=== PATIENT | female | born 1970 | race Two or more races ===

== ENCOUNTER 2023-10-19 10:40 | Emergency (ER) | payer OTHER ==
[2023-10-19 10:50] VITALS: PULSE 86; TEMP 97.7
[2023-10-19] MEDS ORDERED: FAMOTIDINE 20 MG/50 ML IVPB 20 MG/50 ML MG IVPB ONE (10:54)
[2023-10-19] MEDS ORDERED: DEXAMETHASONE SOD PHOSPHATE 10 MG/1 ML VIAL ONE (10:54)
[2023-10-19] MEDS: FAMOTIDINE 20 MG/50 ML IVPB 20 MG/50 ML MG IVPB ONE (11:04)
[2023-10-19] MEDS: DEXAMETHASONE SOD PHOSPHATE 10 MG/1 ML VIAL IVPUSH ONE (11:04)
[2023-10-19 11:19] VITALS: BP 111/75; RESP 18
== END 2023-10-19 11:36 | disposition home or self-care (01) ==
LOC: FER 10:40
PROC: 3E033GC Introduction of Other Therapeutic Substance into Peripheral Vein, Percutaneous Approach (ICD-10-PCS; principal; 2023-10-19)
PROC: 3E033GC Introduction of Other Therapeutic Substance into Peripheral Vein, Percutaneous Approach (ICD-10-PCS; 2023-10-19)
PROC: 3E033GC Introduction of Other Therapeutic Substance into Peripheral Vein, Percutaneous Approach (ICD-10-PCS; 2023-10-19)
DX: L50.0 Allergic urticaria (principal); R11.2 Nausea with vomiting, unspecified
CPT/HCPCS: 99284-25; J1100

== ENCOUNTER 2023-12-25 08:28 | Day surgery (SDC) | payer OTHER ==
[2023-12-25 08:58] LABS: HEMATOCRIT 41.6 % (32.4-45.2); HEMOGLOBIN 14.3 GM/dL (10.7-15.3); MCH 30.8 pg (25.7-33.7); MCHC 34.5 g/dl (32.0-36.0); MEAN CELL VOLUME 89.3 fl (80-96); MEAN PLT VOLUME 10.2 fl (7.5-11.1); PLATELET COUNT 210 10^3/uL (134-434); RBC 4.66 M/mm3 (3.60-5.2); RDW 12.6 % (11.6-15.6)
[2023-12-25 09:32] LABS: ANISOCYTOSIS 0; HELMET CELLS 0; HOWELL-JOLLY BODIES 0; MACROCYTOSIS 0; OVALOCYTE 0; ROULEAU 0; SICKELED CELLS 0; TARGET CELLS 0; TEAR DROP CELLS 0; TOXIC GRANULATION 0
[2023-12-25] MEDS: FOSAPREPITANT DIMEGLUMINE 150 MG in SODIUM CHLORIDE 145 ML IVPB ONE (09:55)
[2023-12-25 10:05] LABS: POTASSIUM 3.5 mmol/L (3.5-5.1)
[2023-12-25 10:07] LABS: ALBUMIN 4.1 g/dl (3.4-5.0); BLOOD UREA NITROGEN 14.8 mg/dL (7-18); CALCIUM 9.9 mg/dL (8.5-10.1); MAGNESIUM 2.1 mg/dL (1.8-2.4)
[2023-12-25 10:10] LABS: CREATININE 0.8 mg/dL (0.55-1.3)
[2023-12-25 10:12] LABS: BILIRUBIN,TOTAL 0.5 mg/dL (0.2-1); TOT PROT 8.6 g/dl (6.4-8.2)
[2023-12-25] MEDS: DEXAMETHASONE SODIUM PHOSPHATE 10 MG in SODIUM CHLORIDE 50 ML IVPB ONE (10:30)
[2023-12-25] MEDS: PALONOSETRON HCL 0.25 MG/5 ML VIAL IVPUSH ONE (11:14)
[2023-12-25] MEDS: SODIUM CHLORIDE IVPB ONE ×2 (11:17→14:06)
[2023-12-25] MEDS: TRASTUZUMAB QYYP IVPB ONE (11:17)
[2023-12-25] MEDS: DOCETAXEL 132 MG in SODIUM CHLORIDE 250 ML IV ONE (12:59)
[2023-12-25] MEDS: CARBOPLATIN IVPB ONE (14:06)
[2023-12-25 14:19] VITALS: RESP 20; TEMP 98
[2023-12-25] MEDS: PORTA CATH FLUSH 10 ML IVPUSH PRN (14:56)
[2023-12-25 15:16] VITALS: BP 124/81; PULSE 101
== END 2023-12-25 15:15 | disposition home or self-care (01) ==
LOC: JONCCHEMO 08:28 → J7W 08:29 → JONCCHEMO 15:15
PROVIDERS: ATTEND Internal Medicine Hematology & Oncology
DX: Z51.11 Encounter for antineoplastic chemotherapy (principal); C50.912 Malignant neoplasm of unspecified site of left female breast; Z17.0 Estrogen receptor positive status [ER+]
CPT/HCPCS: 36415; 80053; 83735; 85025; 96413; 96415; 96417; J1453; Q5116

== ENCOUNTER 2023-12-26 14:05 | Day surgery (SDC) | payer OTHER ==
[2023-12-26] MEDS: DEXAMETHASONE SODIUM PHOSPHATE 6 MG in SODIUM CHLORIDE 50 ML IVPB ONE (14:53)
[2023-12-26] MEDS: DEXTROSE 5%-NORMAL SALINE 500 ML IV ONE (14:53)
[2023-12-26 16:11] VITALS: RESP 18; TEMP 98.2
[2023-12-26] MEDS: PEGFILGRASTIM-CBQV (UDENYCA) 6 MG/0.6 ML SYRINGE SQ ONE (17:02)
[2023-12-26] MEDS: PORTA CATH FLUSH 10 ML IVPUSH PRN (17:05)
[2023-12-26 17:32] VITALS: BP 127/69; PULSE 75
== END 2023-12-26 17:20 | disposition home or self-care (01) ==
LOC: J7W 14:05 → JONCCHEMO 14:05
PROVIDERS: ATTEND Internal Medicine Hematology & Oncology
PROC: 3E0437Z Introduction of Electrolytic and Water Balance Substance into Central Vein, Percutaneous Approach (ICD-10-PCS; principal; 2023-12-26)
PROC: 3E043GC Introduction of Other Therapeutic Substance into Central Vein, Percutaneous Approach (ICD-10-PCS; 2023-12-26)
DX: C50.412 Malignant neoplasm of upper-outer quadrant of left female breast (principal); Z17.0 Estrogen receptor positive status [ER+]
CPT/HCPCS: 96361; 96374; Q5111

== ENCOUNTER 2024-01-01 10:26 | Day surgery (SDC) | payer OTHER ==
[2024-01-01] MEDS: D5-NS + 20 MEQ KCL - 20 MEQ/1,000 ML INFUS.BAG IV ONE (11:48)
[2024-01-01 11:54] LABS: EPI CELLS >36 /uL (0-25.1); HYALINE CASTS 2 /uL (0-3.1); PH,URINE 5.5 (5.0-8.0); URINE APPEARANCE CLOUDY; URINE BACTERIA 1951 /uL (0-1359); URINE BILIRUBIN NEGATIVE (NEGATIVE); URINE COLOR YELLOW; URINE GLUCOSE (UA) NEGATIVE (NEGATIVE); URINE KETONE TRACE (NEGATIVE); URINE LEUK ESTERASE NEGATIVE (NEGATIVE); URINE NITRITE NEGATIVE (NEGATIVE); URINE PROTEIN TRACE (NEGATIVE); URINE RBC 14 /uL (0-23.9); URINE UROBILINOGEN 0.2 mg/dL (0.2-1.0); URINE WBC 54 /uL (0-25.8)
[2024-01-01] MEDS: LOPERAMIDE HCL 2 MG CAPSULE PO ONE (12:12)
[2024-01-01] MEDS: ACETAMINOPHEN 325 MG TABLET (FP) PO ONE (12:12)
[2024-01-01 12:13] LABS: HEMATOCRIT 41.9 % (32.4-45.2); HEMOGLOBIN 13.6 GM/dL (10.7-15.3); MCH 29.8 pg (25.7-33.7); MCHC 32.3 g/dl (32.0-36.0); MEAN CELL VOLUME 92.2 fl (80-96); MEAN PLT VOLUME 10.3 fl (7.5-11.1); PLATELET COUNT 126 10^3/uL (134-434); RBC 4.55 M/mm3 (3.60-5.2); RDW 12.6 % (11.6-15.6); WHITE BLOOD COUNT 25.9 K/mm3 (4.0-10.0)
[2024-01-01] MEDS: FAMOTIDINE 20 MG/50 ML IVPB 20 MG/50 ML MG IVPB ONE (12:13)
[2024-01-01] MEDS: ONDANSETRON INJECTION 8 MG in SODIUM CHLORIDE 50 ML IVPB ONE (12:38)
[2024-01-01 12:39] LABS: ANISOCYTOSIS 0; HELMET CELLS 0; HOWELL-JOLLY BODIES 0; MACROCYTOSIS 0; OVALOCYTE 0; ROULEAU 0; SICKELED CELLS 0; TARGET CELLS 0; TEAR DROP CELLS 0; TOXIC GRANULATION 0
[2024-01-01 12:53] LABS: CHLORIDE 104 mmol/L (98-107); POTASSIUM 3.6 mmol/L (3.5-5.1); SODIUM 138 mmol/L (136-145)
[2024-01-01 12:55] LABS: ALBUMIN 3.8 g/dl (3.4-5.0); ANION GAP 7 mmol/L (4-13); BLOOD UREA NITROGEN 6.7 mg/dL (7-18); CALCIUM 9.4 mg/dL (8.5-10.1); CO2 28 mmol/L (21-32); GLUCOSE,RANDOM 87 mg/dL (74-106)
[2024-01-01 12:56] LABS: MAGNESIUM 2.3 mg/dL (1.8-2.4)
[2024-01-01 12:58] LABS: SGPT/ALT 47 U/L (13-61)
[2024-01-01 12:59] LABS: CREATININE 0.7 mg/dL (0.55-1.3); SGOT/AST 40 U/L (15-37)
[2024-01-01 13:00] LABS: BILIRUBIN,TOTAL 0.2 mg/dL (0.2-1); TOT PROT 7.6 g/dl (6.4-8.2)
[2024-01-01 13:01] LABS: ALK PHOS 123 U/L (45-117)
[2024-01-01] MEDS: PORTA CATH FLUSH 10 ML IVPUSH PRN (15:30)
[2024-01-01 16:20] VITALS: BP 102/64; PULSE 104; RESP 16; TEMP 97.8
== END 2024-01-01 15:45 | disposition home or self-care (01) ==
LOC: JONCCHEMO 10:26 → J7W 10:27 → JONCCHEMO 15:45
PROVIDERS: ATTEND Internal Medicine Hematology & Oncology
PROC: 3E04329 Introduction of Other Anti-infective into Central Vein, Percutaneous Approach (ICD-10-PCS; principal; 2024-01-01)
PROC: 3E0437Z Introduction of Electrolytic and Water Balance Substance into Central Vein, Percutaneous Approach (ICD-10-PCS; 2024-01-01)
PROC: 3E043GC Introduction of Other Therapeutic Substance into Central Vein, Percutaneous Approach (ICD-10-PCS; 2024-01-01)
DX: C50.412 Malignant neoplasm of upper-outer quadrant of left female breast (principal); Z17.0 Estrogen receptor positive status [ER+]; Z76.89 Persons encountering health services in other specified circumstances
CPT/HCPCS: 36415; 71046-TC-FY; 74018-TC-FY; 80053; 81003; 83735; 85025; 87040; 87086; 96365; 96366; J2405

== ENCOUNTER 2024-01-02 07:41 | Day surgery (SDC) | payer OTHER ==
[2024-01-02] MEDS: D5-NS + 20 MEQ KCL - 20 MEQ/1,000 ML INFUS.BAG IV ONE (08:15)
[2024-01-02] MEDS: ACETAMINOPHEN 325 MG TABLET (FP) PO ONE (08:26)
[2024-01-02] MEDS: FAMOTIDINE 20 MG/50 ML IVPB 20 MG/50 ML MG IVPB ONE (08:26)
[2024-01-02] MEDS: LOPERAMIDE HCL 2 MG CAPSULE PO ONE (10:59)
[2024-01-02] MEDS: ONDANSETRON INJECTION 8 MG in SODIUM CHLORIDE 50 ML IVPB ONE (10:59)
[2024-01-02 16:43] VITALS: BP 114/67; PULSE 83; RESP 20; TEMP 98.4
[2024-01-02] MEDS ORDERED: PORTA CATH FLUSH 10 ML IVPUSH PRN (16:43)
== END 2024-01-02 12:00 | disposition home or self-care (01) ==
LOC: J7W 07:41 → JONCCHEMO 07:41
PROVIDERS: ATTEND Internal Medicine Hematology & Oncology
PROC: 3E043GC Introduction of Other Therapeutic Substance into Central Vein, Percutaneous Approach (ICD-10-PCS; principal; 2024-01-02)
PROC: 3E0437Z Introduction of Electrolytic and Water Balance Substance into Central Vein, Percutaneous Approach (ICD-10-PCS; 2024-01-02)
DX: Z76.89 Persons encountering health services in other specified circumstances (principal); C50.412 Malignant neoplasm of upper-outer quadrant of left female breast; Z17.0 Estrogen receptor positive status [ER+]
CPT/HCPCS: 96365; 96367

== ENCOUNTER 2024-01-16 08:24 | Day surgery (SDC) | payer OTHER ==
[2024-01-16 09:27] LABS: BASO % 0.1 % (0-2.0); EOS % 0.3 % (0-4.5); HEMATOCRIT 38.1 % (32.4-45.2); HEMOGLOBIN 12.7 GM/dL (10.7-15.3); LYMPH % 16.5 % (8-40); MCH 30.5 pg (25.7-33.7); MCHC 33.3 g/dl (32.0-36.0); MEAN CELL VOLUME 91.7 fl (80-96); MEAN PLT VOLUME 9.8 fl (7.5-11.1); MONO % 8.3 % (3.8-10.2); NEUT % 74.8 % (42.8-82.8); PLATELET COUNT 297 10^3/uL (134-434); RBC 4.16 M/mm3 (3.60-5.2); RDW 13.7 % (11.6-15.6); WHITE BLOOD COUNT 13.6 K/mm3 (4.0-10.0)
[2024-01-16 10:02] LABS: CALCIUM 9.7 mg/dL (8.5-10.1)
[2024-01-16 10:03] LABS: ALBUMIN 4.1 g/dl (3.4-5.0); ANION GAP 7 mmol/L (4-13); BLOOD UREA NITROGEN 14.6 mg/dL (7-18); CHLORIDE 105 mmol/L (98-107); CO2 26 mmol/L (21-32); GLUCOSE,RANDOM 81 mg/dL (74-106); MAGNESIUM 2.4 mg/dL (1.8-2.4); POTASSIUM 3.6 mmol/L (3.5-5.1); SODIUM 139 mmol/L (136-145)
[2024-01-16 10:06] LABS: CREATININE 0.7 mg/dL (0.55-1.3); SGOT/AST 21 U/L (15-37)
[2024-01-16 10:07] LABS: BILIRUBIN,TOTAL 0.4 mg/dL (0.2-1); TOT PROT 8.2 g/dl (6.4-8.2)
[2024-01-16 10:09] LABS: ALK PHOS 100 U/L (45-117)
[2024-01-16 10:18] LABS: SGPT/ALT 33 U/L (13-61)
[2024-01-16] MEDS: FOSAPREPITANT DIMEGLUMINE 150 MG in SODIUM CHLORIDE 145 ML IVPB ONE (10:18)
[2024-01-16] MEDS: PALONOSETRON HCL 0.25 MG/5 ML VIAL IVPUSH ONE (11:44)
[2024-01-16] MEDS: FAMOTIDINE 20 MG/50 ML IVPB 20 MG/50 ML MG IVPB ONE (11:49)
[2024-01-16] MEDS: DEXAMETHASONE SODIUM PHOSPHATE 10 MG in SODIUM CHLORIDE 50 ML IVPB ONE (13:15)
[2024-01-16] MEDS: SODIUM CHLORIDE IVPB ONE ×2 (13:29→19:48)
[2024-01-16] MEDS: TRASTUZUMAB QYYP IVPB ONE (13:29)
[2024-01-16] MEDS: DOCETAXEL 132 MG in SODIUM CHLORIDE 250 ML IV ONE (14:09)
[2024-01-16] MEDS: methylPREDNISolone NA SUCC 125 MG/2 ML VIAL IVPUSH ONE (14:25)
[2024-01-16] MEDS: LORazepam 2 MG/ML SDV VIAL IVPB ONE (16:35)
[2024-01-16] MEDS: MAG HYDROX/AL HYDROX/SIMETH 30 ML UNIT-DOSE CUP PO ONE (16:37)
[2024-01-16] MEDS: DEXAMETHASONE SOD PHOSPHATE 10 MG/1 ML VIAL IVPUSH SCH (16:46)
[2024-01-16] MEDS: CARBOPLATIN IVPB ONE (19:48)
[2024-01-16] MEDS: PORTA CATH FLUSH 10 ML IVPUSH PRN (20:30)
[2024-01-16 20:40] VITALS: BP 128/80; PULSE 77; RESP 16; TEMP 97.9
== END 2024-01-16 21:00 | disposition home or self-care (01) ==
LOC: JONCCHEMO 08:24 → J7W 10:01 → JONCCHEMO 21:00
PROVIDERS: ATTEND Internal Medicine Hematology & Oncology
DX: Z51.11 Encounter for antineoplastic chemotherapy (principal); C50.412 Malignant neoplasm of upper-outer quadrant of left female breast; Z17.0 Estrogen receptor positive status [ER+]
CPT/HCPCS: 36415; 80053; 83735; 84703; 85025; 96367; 96368; 96375; 96413; 96415; 96417; J1100; J1453; Q5116

== ENCOUNTER 2024-01-17 11:45 | Day surgery (SDC) | payer OTHER ==
[2024-01-17] MEDS: DEXTROSE 5%-NORMAL SALINE 1,000 ML IV ONE (12:03)
[2024-01-17] MEDS: DEXAMETHASONE SODIUM PHOSPHATE 6 MG in SODIUM CHLORIDE 50 ML IVPB ONE (12:04)
[2024-01-17] MEDS: PROCHLORPERAZINE INJECTION 10 MG in SODIUM CHLORIDE 50 ML IVPB ONE (13:15)
[2024-01-17] MEDS: FAMOTIDINE 20 MG/50 ML IVPB 20 MG/50 ML MG IVPB ONE (14:20)
[2024-01-17] MEDS: PEGFILGRASTIM-CBQV (UDENYCA) 6 MG/0.6 ML SYRINGE SQ ONE (15:06)
[2024-01-17 15:48] VITALS: BP 123/77; PULSE 91; RESP 20; TEMP 98.1
[2024-01-17] MEDS ORDERED: PORTA CATH FLUSH 10 ML IVPUSH PRN (15:48)
== END 2024-01-17 15:40 | disposition home or self-care (01) ==
LOC: JONCCHEMO 11:45 → J7W 11:45 → JONCCHEMO 15:40
PROVIDERS: ATTEND Internal Medicine Hematology & Oncology
PROC: 3E043GC Introduction of Other Therapeutic Substance into Central Vein, Percutaneous Approach (ICD-10-PCS; principal; 2024-01-17)
PROC: 3E013GC Introduction of Other Therapeutic Substance into Subcutaneous Tissue, Percutaneous Approach (ICD-10-PCS; 2024-01-17)
DX: C50.912 Malignant neoplasm of unspecified site of left female breast (principal); Z76.89 Persons encountering health services in other specified circumstances
CPT/HCPCS: 96365; 96366; 96372; Q5111

== ENCOUNTER 2024-01-18 08:35 | Day surgery (SDC) | payer OTHER ==
[2024-01-18] MEDS: DEXTROSE 5%-NORMAL SALINE 1,000 ML IV ONE (08:20)
[2024-01-18] MEDS: DEXAMETHASONE SODIUM PHOSPHATE 4 MG, ONDANSETRON INJECTION 8 MG in SODIUM CHLORIDE 100 ML IVPB ONE (09:20)
[2024-01-18 10:11] VITALS: TEMP 98.4
[2024-01-18 10:55] LABS: PH,URINE 6.5 (5.0-8.0); URINE APPEARANCE CLEAR; URINE BILIRUBIN NEGATIVE (NEGATIVE); URINE COLOR YELLOW; URINE GLUCOSE (UA) NEGATIVE (NEGATIVE); URINE KETONE NEGATIVE (NEGATIVE); URINE LEUK ESTERASE NEGATIVE (NEGATIVE); URINE NITRITE NEGATIVE (NEGATIVE); URINE PROTEIN NEGATIVE (NEGATIVE); URINE UROBILINOGEN 0.2 mg/dL (0.2-1.0)
[2024-01-18] MEDS: FAMOTIDINE 20 MG/50 ML IVPB 20 MG/50 ML MG IVPB ONE (10:56)
[2024-01-18] MEDS: PORTA CATH FLUSH 10 ML IVPUSH PRN (12:30)
[2024-01-18 14:12] VITALS: BP 118/71; PULSE 83; RESP 16
== END 2024-01-18 13:00 | disposition home or self-care (01) ==
LOC: JONCCHEMO 08:35 → J7W 08:35 → JONCCHEMO 13:00
PROVIDERS: ATTEND Internal Medicine Hematology & Oncology
PROC: 3E043GC Introduction of Other Therapeutic Substance into Central Vein, Percutaneous Approach (ICD-10-PCS; principal; 2024-01-18)
DX: C50.412 Malignant neoplasm of upper-outer quadrant of left female breast (principal); Z17.0 Estrogen receptor positive status [ER+]
CPT/HCPCS: 81003; 87086; 96365; J2405

== ENCOUNTER 2024-01-21 10:57 | Day surgery (SDC) | payer OTHER ==
[2024-01-21 12:18] LABS: HEMOGLOBIN 14.3 GM/dL (10.7-15.3); MCH 31.3 pg (25.7-33.7); MCHC 34.1 g/dl (32.0-36.0); MEAN CELL VOLUME 91.7 fl (80-96); MEAN PLT VOLUME 11.7 fl (7.5-11.1); PLATELET COUNT 79 10^3/uL (134-434); RBC 4.59 M/mm3 (3.60-5.2); RDW 13.6 % (11.6-15.6)
[2024-01-21 12:36] LABS: CHLORIDE 100 mmol/L (98-107); POTASSIUM 3.2 mmol/L (3.5-5.1); SODIUM 135 mmol/L (136-145)
[2024-01-21 12:38] LABS: CALCIUM 9.3 mg/dL (8.5-10.1)
[2024-01-21 12:39] LABS: ALBUMIN 3.9 g/dl (3.4-5.0); ANION GAP 8 mmol/L (4-13); CO2 27 mmol/L (21-32); GLUCOSE,RANDOM 119 mg/dL (74-106); MAGNESIUM 2.2 mg/dL (1.8-2.4)
[2024-01-21 12:42] LABS: CREATININE 0.8 mg/dL (0.55-1.3); SGOT/AST 25 U/L (15-37); SGPT/ALT 31 U/L (13-61)
[2024-01-21 12:43] LABS: BILIRUBIN,TOTAL 0.6 mg/dL (0.2-1); TOT PROT 7.6 g/dl (6.4-8.2)
[2024-01-21 12:44] LABS: ALK PHOS 130 U/L (45-117)
[2024-01-21 13:17] LABS: ANISOCYTOSIS 0; HELMET CELLS 0; HOWELL-JOLLY BODIES 0; MACROCYTOSIS 0; OVALOCYTE 0; ROULEAU 0; SICKELED CELLS 0; TARGET CELLS 0; TEAR DROP CELLS 0; TOXIC GRANULATION 0
[2024-01-21] MEDS: DEXTROSE 5%-NORMAL SALINE 1,000 ML IV ONE (13:55)
[2024-01-21] MEDS: FAMOTIDINE 20 MG/50 ML IVPB 20 MG/50 ML MG IVPB ONE (14:19)
[2024-01-21] MEDS: SUCRALFATE 1 GM TABLET (FP) PO ONE (14:19)
[2024-01-21] MEDS ORDERED: KCL 20 MEQ PREMIX BAG 20 MEQ/100 ML INFUS.BAG IVPB ONE (14:27)
[2024-01-21 14:35] LABS: EPI CELLS 16 /uL (0-25.1); HYALINE CASTS 0 /uL (0-3.1); URINE APPEARANCE CLEAR; URINE BACTERIA 470 /uL (0-1359); URINE BILIRUBIN NEGATIVE (NEGATIVE); URINE COLOR YELLOW; URINE GLUCOSE (UA) NEGATIVE (NEGATIVE); URINE KETONE NEGATIVE (NEGATIVE); URINE LEUK ESTERASE TRACE (NEGATIVE); URINE NITRITE NEGATIVE (NEGATIVE); URINE PROTEIN NEGATIVE (NEGATIVE); URINE RBC 8 /uL (0-23.9); URINE UROBILINOGEN 0.2 mg/dL (0.2-1.0); URINE WBC 22 /uL (0-25.8)
[2024-01-21] MEDS: KCL 10 MEQ IVPB 10 MEQ/100 ML INFUS.BAG IVPB SCH ×2 (14:53→16:43)
[2024-01-21 16:24] VITALS: TEMP 98.1
[2024-01-21] MEDS ORDERED: PORTA CATH FLUSH 10 ML IVPUSH PRN (16:31)
[2024-01-21 18:20] VITALS: BP 101/68; PULSE 110; RESP 16
== END 2024-01-21 19:15 | disposition home or self-care (01) ==
LOC: JONCNONCHE 10:57 → J7W 10:58 → JONCNONCHE 19:15
PROVIDERS: ATTEND Internal Medicine Hematology & Oncology
PROC: 3E043GC Introduction of Other Therapeutic Substance into Central Vein, Percutaneous Approach (ICD-10-PCS; principal; 2024-01-21)
DX: C50.412 Malignant neoplasm of upper-outer quadrant of left female breast (principal); Z17.0 Estrogen receptor positive status [ER+]; Z76.89 Persons encountering health services in other specified circumstances
CPT/HCPCS: 36415; 71046-TC-FY; 80053; 81003; 83735; 85025; 87040; 87086; 96365; 96366; 96367

== ENCOUNTER 2024-02-04 12:22 | Day surgery (SDC) | payer OTHER ==
[2024-02-04] MEDS ORDERED: MAG HYDROX/AL HYDROX/SIMETH 30 ML UNIT-DOSE CUP PO ONE (13:30)
[2024-02-04] MEDS ORDERED: LORazepam 2 MG/ML SDV VIAL IVPUSH ONE (13:30)
[2024-02-04 14:26] LABS: BASO % 0.4 % (0-2.0); EOS % 0.3 % (0-4.5); HEMATOCRIT 36.8 % (32.4-45.2); HEMOGLOBIN 12.5 GM/dL (10.7-15.3); LYMPH % 25.7 % (8-40); MCH 31.2 pg (25.7-33.7); MCHC 33.9 g/dl (32.0-36.0); MEAN CELL VOLUME 92.2 fl (80-96); MEAN PLT VOLUME 9.5 fl (7.5-11.1); MONO % 6.3 % (3.8-10.2); NEUT % 67.3 % (42.8-82.8); PLATELET COUNT 242 10^3/uL (134-434); RBC 3.99 M/mm3 (3.60-5.2); RDW 14.2 % (11.6-15.6); WHITE BLOOD COUNT 8.3 K/mm3 (4.0-10.0)
[2024-02-04 14:53] LABS: POTASSIUM 4.2 mmol/L (3.5-5.1)
[2024-02-04 14:55] LABS: ALBUMIN 3.9 g/dl (3.4-5.0); CALCIUM 9.6 mg/dL (8.5-10.1)
[2024-02-04 14:57] LABS: MAGNESIUM 2.2 mg/dL (1.8-2.4)
[2024-02-04 14:59] LABS: CREATININE 0.6 mg/dL (0.55-1.3)
[2024-02-04 15:00] LABS: BILIRUBIN,TOTAL 0.2 mg/dL (0.2-1); TOT PROT 7.8 g/dl (6.4-8.2)
[2024-02-04] MEDS: FOSAPREPITANT DIMEGLUMINE 150 MG in SODIUM CHLORIDE 145 ML IVPB ONE (15:10)
[2024-02-04] MEDS: PALONOSETRON HCL 0.25 MG/5 ML VIAL IVPUSH ONE (15:26)
[2024-02-04] MEDS: DEXAMETHASONE SODIUM PHOSPHATE 10 MG in DEXTROSE 5%-WATER - 50 ML IVPB ONE (15:41)
[2024-02-04] MEDS: FAMOTIDINE 20 MG/50 ML IVPB 20 MG/50 ML MG IVPB ONE (16:00)
[2024-02-04] MEDS: SODIUM CHLORIDE IVPB ONE ×2 (16:29→19:58)
[2024-02-04] MEDS: TRASTUZUMAB QYYP IVPB ONE (16:29)
[2024-02-04] MEDS: LORazepam 2 MG/ML SDV VIAL IVPUSH ONE (17:15)
[2024-02-04] MEDS: DEXAMETHASONE SODIUM PHOSPHATE 12 MG in SODIUM CHLORIDE 50 ML IVPB ONE (17:30)
[2024-02-04] MEDS: MAG HYDROX/AL HYDROX/SIMETH 30 ML UNIT-DOSE CUP PO ONE (17:45)
[2024-02-04] MEDS: SODIUM CHLORIDE IV ONE ×3 (17:45→18:53)
[2024-02-04] MEDS: DOCETAXEL IV ONE ×3 (17:45→18:53)
[2024-02-04 19:27] VITALS: TEMP 98.4
[2024-02-04] MEDS: CARBOPLATIN IVPB ONE (19:58)
[2024-02-04] MEDS: PORTA CATH FLUSH 10 ML IVPUSH PRN (20:32)
[2024-02-04 20:33] VITALS: BP 126/76; PULSE 106; RESP 20
== END 2024-02-04 20:40 | disposition home or self-care (01) ==
LOC: JONCCHEMO 12:22 → J7W 12:25 → JONCCHEMO 20:40
PROVIDERS: ATTEND Internal Medicine Hematology & Oncology
DX: Z51.11 Encounter for antineoplastic chemotherapy (principal); C50.412 Malignant neoplasm of upper-outer quadrant of left female breast; Z17.0 Estrogen receptor positive status [ER+]
CPT/HCPCS: 36415; 80053; 82962; 83735; 84703; 85025; 96367; 96375; 96413; 96415; 96417; J1453; J9171; Q5116

== ENCOUNTER 2024-02-05 07:35 | Day surgery (SDC) | payer OTHER ==
[2024-02-05] MEDS: DEXTROSE 5%-NORMAL SALINE 1,000 ML IV ONE (07:42)
[2024-02-05] MEDS: FAMOTIDINE 20 MG/50 ML IVPB 20 MG/50 ML MG IVPB ONE (09:00)
[2024-02-05] MEDS: PROCHLORPERAZINE INJECTION 10 MG in SODIUM CHLORIDE 50 ML IVPB ONE (09:31)
[2024-02-05] MEDS: DEXAMETHASONE SODIUM PHOSPHATE 6 MG in SODIUM CHLORIDE 50 ML IVPB ONE (09:42)
[2024-02-05] MEDS: PEGFILGRASTIM-CBQV (UDENYCA) 6 MG/0.6 ML SYRINGE SQ ONE (10:51)
[2024-02-05] MEDS: PORTA CATH FLUSH 10 ML IVPUSH PRN (11:00)
[2024-02-05 15:08] VITALS: RESP 20; TEMP 98.2
[2024-02-05 15:18] VITALS: BP 118/71; PULSE 106
== END 2024-02-05 11:05 | disposition home or self-care (01) ==
LOC: JONCCHEMO 07:35 → J7W 07:35 → JONCCHEMO 11:05
PROVIDERS: ATTEND Internal Medicine Hematology & Oncology
PROC: 3E043GC Introduction of Other Therapeutic Substance into Central Vein, Percutaneous Approach (ICD-10-PCS; principal; 2024-02-05)
PROC: 3E013GC Introduction of Other Therapeutic Substance into Subcutaneous Tissue, Percutaneous Approach (ICD-10-PCS; 2024-02-05)
DX: C50.412 Malignant neoplasm of upper-outer quadrant of left female breast (principal)
CPT/HCPCS: 96365; 96372; Q5111

== ENCOUNTER 2024-02-07 10:35 | Day surgery (SDC) | payer OTHER ==
[2024-02-07] MEDS: FAMOTIDINE 20 MG/50 ML IVPB 20 MG/50 ML MG IVPB ONE (10:36)
[2024-02-07] MEDS: DEXTROSE 5%-NORMAL SALINE 1,000 ML IV ONE (10:36)
[2024-02-07] MEDS: DEXAMETHASONE INJECTION 4 MG, ONDANSETRON INJECTION 8 MG in SODIUM CHLORIDE 100 ML IVPB ONE (12:31)
[2024-02-07] MEDS: PORTA CATH FLUSH 10 ML IVPUSH PRN (13:40)
[2024-02-07 17:34] VITALS: BP 100/70; PULSE 117; RESP 20; TEMP 99.1
== END 2024-02-07 13:40 | disposition home or self-care (01) ==
LOC: JONCCHEMO 10:35 → J7W 10:40 → JONCCHEMO 13:40
PROVIDERS: ATTEND Internal Medicine Hematology & Oncology
PROC: 3E043GC Introduction of Other Therapeutic Substance into Central Vein, Percutaneous Approach (ICD-10-PCS; principal; 2024-02-07)
PROC: 3E0433Z Introduction of Anti-inflammatory into Central Vein, Percutaneous Approach (ICD-10-PCS; 2024-02-07)
DX: C50.412 Malignant neoplasm of upper-outer quadrant of left female breast (principal); Z17.0 Estrogen receptor positive status [ER+]; Z76.89 Persons encountering health services in other specified circumstances
CPT/HCPCS: 96365; 96366; J1100

== ENCOUNTER 2024-02-27 08:27 | Day surgery (SDC) | payer OTHER ==
[2024-02-27 08:28] LABS: BASO % 0.4 % (0-2.0); EOS % 1.1 % (0-4.5); HEMATOCRIT 36.6 % (32.4-45.2); HEMOGLOBIN 12.3 GM/dL (10.7-15.3); MCH 31.7 pg (25.7-33.7); MCHC 33.6 g/dl (32.0-36.0); MEAN CELL VOLUME 94.5 fl (80-96); MONO % 9.1 % (3.8-10.2); NEUT % 44.4 % (42.8-82.8); PLATELET COUNT 190 10^3/uL (134-434); RBC 3.87 M/mm3 (3.60-5.2); RDW 16.5 % (11.6-15.6); WHITE BLOOD COUNT 4.9 K/mm3 (4.0-10.0)
[2024-02-27 08:50] LABS: CHLORIDE 107 mmol/L (98-107); POTASSIUM 3.8 mmol/L (3.5-5.1); SODIUM 139 mmol/L (136-145)
[2024-02-27 08:52] LABS: ALBUMIN 3.6 g/dl (3.4-5.0); CALCIUM 9.2 mg/dL (8.5-10.1)
[2024-02-27 08:53] LABS: ANION GAP 5 mmol/L (4-13); BLOOD UREA NITROGEN 12.2 mg/dL (7-18); CO2 27 mmol/L (21-32); GLUCOSE,RANDOM 97 mg/dL (74-106); MAGNESIUM 2.1 mg/dL (1.8-2.4)
[2024-02-27 08:56] LABS: CREATININE 0.7 mg/dL (0.55-1.3); SGOT/AST 25 U/L (15-37); SGPT/ALT 38 U/L (13-61)
[2024-02-27 08:57] LABS: BILIRUBIN,TOTAL 0.3 mg/dL (0.2-1); TOT PROT 7.5 g/dl (6.4-8.2)
[2024-02-27 08:59] LABS: ALK PHOS 104 U/L (45-117)
[2024-02-27 10:15] LABS: EPI CELLS >36 /uL (0-25.1); HYALINE CASTS 0 /uL (0-3.1); PH,URINE 6.5 (5.0-8.0); URINE APPEARANCE CLEAR; URINE BACTERIA 901 /uL (0-1359); URINE BILIRUBIN NEGATIVE (NEGATIVE); URINE COLOR YELLOW; URINE GLUCOSE (UA) NEGATIVE (NEGATIVE); URINE KETONE NEGATIVE (NEGATIVE); URINE LEUK ESTERASE 2+ (NEGATIVE); URINE NITRITE NEGATIVE (NEGATIVE); URINE PROTEIN NEGATIVE (NEGATIVE); URINE RBC 4 /uL (0-23.9); URINE UROBILINOGEN 0.2 mg/dL (0.2-1.0); URINE WBC 35 /uL (0-25.8)
[2024-02-27] MEDS: FAMOTIDINE 20 MG/50 ML IVPB 20 MG/50 ML MG IVPB ONE (11:30)
[2024-02-27] MEDS ORDERED: LORazepam 2 MG/ML SDV VIAL ONE (11:34)
[2024-02-27] MEDS: FOSAPREPITANT DIMEGLUMINE 150 MG in SODIUM CHLORIDE 145 ML IVPB ONE (12:00)
[2024-02-27] MEDS: LORazepam 2 MG/ML SDV VIAL IVPUSH ONE (12:02)
[2024-02-27] MEDS ORDERED: INSULIN ASPART SLIDING SCALE (NOVOLOG) 1 VIAL SQ ONE (12:19)
[2024-02-27] MEDS: LIDOCAINE 5% TOPICAL PATCH TP ONE ×3 (12:26→12:30)
[2024-02-27] MEDS: ACETAMINOPHEN 325 MG TABLET (FP) PO ONE (12:27)
[2024-02-27] MEDS: PALONOSETRON HCL 0.25 MG/5 ML VIAL IVPUSH ONE (12:35)
[2024-02-27] MEDS: DEXAMETHASONE SODIUM PHOSPHATE 12 MG in SODIUM CHLORIDE 50 ML IVPB ONE (12:36)
[2024-02-27] MEDS: TRASTUZUMAB QYYP IVPB ONE (13:02)
[2024-02-27] MEDS: SODIUM CHLORIDE IVPB ONE ×3 (13:02→16:49)
[2024-02-27] MEDS: MAG HYDROX/AL HYDROX/SIMETH 30 ML UNIT-DOSE CUP PO ONE (13:56)
[2024-02-27] MEDS: DIPHENHYDRAMINE IVPB ONE (13:56)
[2024-02-27] MEDS: DEXAMETHASONE SODIUM PHOSPHATE IVPB ONE (13:56)
[2024-02-27 14:04] VITALS: RESP 16; TEMP 98.2
[2024-02-27] MEDS: DOCETAXEL IV ONE (14:50)
[2024-02-27] MEDS: SODIUM CHLORIDE IV ONE (14:50)
[2024-02-27] MEDS: CARBOPLATIN IVPB ONE (16:49)
[2024-02-27] MEDS: PORTA CATH FLUSH 10 ML IVPUSH PRN (17:30)
[2024-02-27 17:34] VITALS: BP 117/78; PULSE 106
[2024-02-27] MEDS ORDERED: LIDOCAINE PATCH REMOVAL MC SCH (22:00)
== END 2024-02-27 17:39 | disposition home or self-care (01) ==
LOC: JONCCHEMO 08:27 → J7W 08:28 → JONCCHEMO 17:39
PROVIDERS: ATTEND Internal Medicine Hematology & Oncology
PROC: 3E04305 Introduction of Other Antineoplastic into Central Vein, Percutaneous Approach (ICD-10-PCS; principal; 2024-02-27)
PROC: 3E043GC Introduction of Other Therapeutic Substance into Central Vein, Percutaneous Approach (ICD-10-PCS; 2024-02-27)
DX: Z51.11 Encounter for antineoplastic chemotherapy (principal); C50.412 Malignant neoplasm of upper-outer quadrant of left female breast; Z17.0 Estrogen receptor positive status [ER+]
CPT/HCPCS: 36415; 73560-TC-LT-FY; 80053; 81003; 83735; 84703; 85025; 87086; 96365; 96367; 96413; 96415; 96417; J1453; J9171; Q5116

== ENCOUNTER 2024-02-29 08:30 | Day surgery (SDC) | payer OTHER ==
[2024-02-29] MEDS: DEXTROSE 5%-NORMAL SALINE 1,000 ML IV ONE (08:42)
[2024-02-29] MEDS: LIDOCAINE 5% TOPICAL PATCH TP ONE (09:20)
[2024-02-29] MEDS: LIDOCAINE PATCH REMOVAL MC SCH (09:21)
[2024-02-29] MEDS: FAMOTIDINE 20 MG/50 ML IVPB 20 MG/50 ML MG IVPB ONE (09:22)
[2024-02-29] MEDS: DEXAMETHASONE INJECTION 4 MG, ONDANSETRON INJECTION 8 MG in SODIUM CHLORIDE 100 ML IVPB ONE (10:47)
[2024-02-29 11:27] VITALS: TEMP 97.8
[2024-02-29 11:57] VITALS: BP 117/75; PULSE 95; RESP 18
[2024-02-29] MEDS ORDERED: PORTA CATH FLUSH 10 ML IVPUSH PRN (11:57)
== END 2024-02-29 11:50 | disposition home or self-care (01) ==
LOC: JONCCHEMO 08:30 → J7W 08:31 → JONCCHEMO 11:50
PROVIDERS: ATTEND Internal Medicine Hematology & Oncology
PROC: 3E0437Z Introduction of Electrolytic and Water Balance Substance into Central Vein, Percutaneous Approach (ICD-10-PCS; principal; 2024-02-29)
PROC: 3E033GC Introduction of Other Therapeutic Substance into Peripheral Vein, Percutaneous Approach (ICD-10-PCS; 2024-02-29)
DX: C50.912 Malignant neoplasm of unspecified site of left female breast (principal); Z17.0 Estrogen receptor positive status [ER+]
CPT/HCPCS: 96365; 96366; J1100

== ENCOUNTER 2024-03-19 08:15 | Day surgery (SDC) | payer OTHER ==
[2024-03-19] MEDS: FAMOTIDINE 20 MG/50 ML IVPB 20 MG/50 ML MG IVPB ONE (08:55)
[2024-03-19] MEDS: SODIUM CHLORIDE 500 ML IV ONE (08:55)
[2024-03-19] MEDS: DEXAMETHASONE SODIUM PHOSPHATE 6 MG, ONDANSETRON INJECTION 8 MG in SODIUM CHLORIDE 100 ML IVPB ONE (09:28)
[2024-03-19 15:49] VITALS: BP 103/64; PULSE 98; RESP 20; TEMP 98.7
[2024-03-19] MEDS ORDERED: PORTA CATH FLUSH 10 ML IVPUSH PRN (15:49)
== END 2024-03-19 11:05 | disposition home or self-care (01) ==
LOC: JONCCHEMO 08:15 → J7W 08:15 → JONCCHEMO 11:05
PROVIDERS: ATTEND Internal Medicine Hematology & Oncology
PROC: 3E043GC Introduction of Other Therapeutic Substance into Central Vein, Percutaneous Approach (ICD-10-PCS; principal; 2024-03-19)
DX: C50.919 Malignant neoplasm of unspecified site of unspecified female breast (principal)
CPT/HCPCS: 96365

== ENCOUNTER 2024-04-07 08:35 | Day surgery (SDC) | payer OTHER ==
[~2024-04-07 08:35] MED LIST: LORazepam 2 MG/ML SDV VIAL IVPUSH ONE
[2024-04-07 09:18] LABS: HEMATOCRIT 31.9 % (32.4-45.2); HEMOGLOBIN 10.8 GM/dL (10.7-15.3); MCH 34.2 pg (25.7-33.7); MCHC 33.7 g/dl (32.0-36.0); MEAN CELL VOLUME 101.5 fl (80-96); MEAN PLT VOLUME 9.3 fl (7.5-11.1); PLATELET COUNT 131 10^3/uL (134-434); RBC 3.14 M/mm3 (3.60-5.2); RDW 18.8 % (11.6-15.6); WHITE BLOOD COUNT 9.6 K/mm3 (4.0-10.0)
[2024-04-07 09:45] LABS: ALBUMIN 3.4 g/dl (3.4-5.0); BLOOD UREA NITROGEN 17.3 mg/dL (7-18); MAGNESIUM 2.2 mg/dL (1.8-2.4); POTASSIUM 4.1 mmol/L (3.5-5.1)
[2024-04-07 09:48] LABS: CALCIUM 8.8 mg/dL (8.5-10.1); CREATININE 0.6 mg/dL (0.55-1.3)
[2024-04-07 09:50] LABS: BILIRUBIN,TOTAL 0.3 mg/dL (0.2-1)
[2024-04-07 10:56] LABS: ANISOCYTOSIS 2+; MACROCYTOSIS 1+
[2024-04-07] MEDS: FOSAPREPITANT DIMEGLUMINE 150 MG in SODIUM CHLORIDE 145 ML IVPB ONE (11:16)
[2024-04-07] MEDS: FAMOTIDINE 20 MG/50 ML IVPB 20 MG/50 ML MG IVPB ONE (12:01)
[2024-04-07] MEDS: DEXAMETHASONE SODIUM PHOSPHATE 12 MG in SODIUM CHLORIDE 50 ML IVPB ONE (12:43)
[2024-04-07] MEDS: PALONOSETRON HCL 0.25 MG/5 ML VIAL IVPUSH ONE (12:46)
[2024-04-07] MEDS: MAG HYDROX/AL HYDROX/SIMETH 30 ML UNIT-DOSE CUP PO ONE (12:48)
[2024-04-07] MEDS: TRASTUZUMAB QYYP IVPB ONE (13:03)
[2024-04-07] MEDS: SODIUM CHLORIDE IVPB ONE ×3 (13:03→17:02)
[2024-04-07] MEDS: DEXAMETHASONE SODIUM PHOSPHATE IVPB ONE (13:51)
[2024-04-07] MEDS: DIPHENHYDRAMINE IVPB ONE (13:51)
[2024-04-07] MEDS: LORazepam 2 MG/ML SDV VIAL IVPUSH ONE (14:27)
[2024-04-07] MEDS: SODIUM CHLORIDE IV ONE (14:54)
[2024-04-07] MEDS: DOCETAXEL IV ONE (14:54)
[2024-04-07 15:30] VITALS: RESP 18
[2024-04-07 16:43] VITALS: BP 104/70; PULSE 105; TEMP 98
[2024-04-07] MEDS: CARBOPLATIN IVPB ONE (17:02)
[2024-04-07] MEDS: PORTA CATH FLUSH 10 ML IVPUSH PRN (17:40)
== END 2024-04-07 17:51 | disposition home or self-care (01) ==
LOC: J7W 08:35 → JONCCHEMO 08:35
PROVIDERS: ATTEND Internal Medicine Hematology & Oncology
PROC: 3E04305 Introduction of Other Antineoplastic into Central Vein, Percutaneous Approach (ICD-10-PCS; principal; 2024-04-07)
PROC: 3E043GC Introduction of Other Therapeutic Substance into Central Vein, Percutaneous Approach (ICD-10-PCS; 2024-04-07)
DX: C50.412 Malignant neoplasm of upper-outer quadrant of left female breast (principal); Z17.0 Estrogen receptor positive status [ER+]
CPT/HCPCS: 36415; 80053; 82378; 83735; 84702; 85025; 86300; 96366; 96367; 96413; 96415; 96417; J1453; J9171; Q5116

== ENCOUNTER 2024-04-08 08:37 | Day surgery (SDC) | payer OTHER ==
[2024-04-08] MEDS: DEXTROSE 5%-NORMAL SALINE 1,000 ML IV ONE (08:52)
[2024-04-08] MEDS: FAMOTIDINE 20 MG/50 ML IVPB 20 MG/50 ML MG IVPB ONE (08:53)
[2024-04-08] MEDS: PROCHLORPERAZINE INJECTION 10 MG in SODIUM CHLORIDE 50 ML IVPB ONE (09:48)
[2024-04-08] MEDS: DEXAMETHASONE SODIUM PHOSPHATE 6 MG in SODIUM CHLORIDE 50 ML IVPB ONE (11:00)
[2024-04-08] MEDS: PEGFILGRASTIM-CBQV (UDENYCA) 6 MG/0.6 ML SYRINGE SQ ONE (11:55)
[2024-04-08] MEDS: PORTA CATH FLUSH 10 ML IVPUSH PRN (12:00)
[2024-04-08 14:12] VITALS: TEMP 98
[2024-04-08 14:34] VITALS: BP 110/69; PULSE 6; RESP 18
== END 2024-04-08 12:15 | disposition home or self-care (01) ==
LOC: JONCCHEMO 08:37 → J7W 08:38 → JONCCHEMO 12:15
PROVIDERS: ATTEND Internal Medicine Hematology & Oncology
PROC: 3E033GC Introduction of Other Therapeutic Substance into Peripheral Vein, Percutaneous Approach (ICD-10-PCS; principal; 2024-04-08)
PROC: 3E013GC Introduction of Other Therapeutic Substance into Subcutaneous Tissue, Percutaneous Approach (ICD-10-PCS; 2024-04-08)
PROC: 3E0337Z Introduction of Electrolytic and Water Balance Substance into Peripheral Vein, Percutaneous Approach (ICD-10-PCS; 2024-04-08)
DX: C50.919 Malignant neoplasm of unspecified site of unspecified female breast (principal)
CPT/HCPCS: 96365; 96367; 96372; Q5111

== ENCOUNTER 2024-04-09 08:01 | Day surgery (SDC) | payer OTHER ==
[2024-04-09] MEDS: DEXTROSE 5%-NORMAL SALINE 1,000 ML IV ONE (08:25)
[2024-04-09] MEDS: DEXAMETHASONE SODIUM PHOSPHATE 4 MG, ONDANSETRON INJECTION 8 MG in SODIUM CHLORIDE 100 ML IVPB ONE (08:26)
[2024-04-09] MEDS: FAMOTIDINE 20 MG/50 ML IVPB 20 MG/50 ML MG IVPB ONE (09:00)
[2024-04-09] MEDS: PORTA CATH FLUSH 10 ML IVPUSH PRN (11:30)
[2024-04-09 15:45] VITALS: BP 98/63; PULSE 108; RESP 20; TEMP 98.2
== END 2024-04-09 11:35 | disposition home or self-care (01) ==
LOC: J7W 08:01 → JONCCHEMO 08:01
PROVIDERS: ATTEND Internal Medicine Hematology & Oncology
PROC: 3E043GC Introduction of Other Therapeutic Substance into Central Vein, Percutaneous Approach (ICD-10-PCS; principal; 2024-04-09)
DX: C50.412 Malignant neoplasm of upper-outer quadrant of left female breast (principal); Z17.0 Estrogen receptor positive status [ER+]; Z76.89 Persons encountering health services in other specified circumstances
CPT/HCPCS: 96365; 96367

== ENCOUNTER 2024-04-28 08:40 | Day surgery (SDC) | payer OTHER ==
[2024-04-28 09:09] LABS: ABSOLUTE IMMATURE GRANULOCYTES 0.02 x10^3/uL (0.0-0.031); BASOPHILS # 0.02 x10^3/uL (0.01-0.08); EOSINOPHIL % 0.8 % (0.7-5.8); EOSINOPHILS # 0.05 x10^3/uL (0.04-0.36); HEMATOCRIT 31.4 % (34.1-44.9); HEMOGLOBIN 10.2 g/dL (11.2-15.7); MCHC 32.5 g/dl (32.2-35.5); MEAN CELL VOLUME 104.7 fl (79.4-94.8); MEAN PLT VOLUME 10.9 fl (9.4-12.3); MONOCYTE # 0.68 x10^3/uL (0.24-0.86); PLATELET COUNT 223 x10^3/uL (182-369); RDW 16.1 % (12.3-16.6)
[2024-04-28 09:36] LABS: CHLORIDE 104 mmol/L (98-107); POTASSIUM 3.9 mmol/L (3.5-5.1); SODIUM 138 mmol/L (136-145)
[2024-04-28 09:44] LABS: ALK PHOS 94 U/L (45-117)
[2024-04-28 09:46] LABS: BILIRUBIN,TOTAL 0.2 mg/dL (0.2-1)
[2024-04-28 10:08] LABS: ALBUMIN 3.2 g/dl (3.4-5.0); ANION GAP 8 mmol/L (4-13); BLOOD UREA NITROGEN 14.1 mg/dL (7-18); CALCIUM 8.9 mg/dL (8.5-10.1); CO2 26 mmol/L (21-32); MAGNESIUM 2.1 mg/dL (1.8-2.4)
[2024-04-28 10:10] LABS: GLUCOSE,RANDOM 128 mg/dL (74-106)
[2024-04-28 10:12] LABS: SGPT/ALT 36 U/L (13-61)
[2024-04-28 10:13] LABS: CREATININE 0.6 mg/dL (0.55-1.3); SGOT/AST 32 U/L (15-37); TOT PROT 7.1 g/dl (6.4-8.2)
[2024-04-28] MEDS: ACETAMINOPHEN 325 MG TABLET (FP) PO ONE (10:45)
[2024-04-28] MEDS: ONDANSETRON INJECTION 8 MG in SODIUM CHLORIDE 50 ML IVPB ONE (10:45)
[2024-04-28] MEDS: LORazepam 2 MG/ML SDV VIAL IVPUSH ONE (11:12)
[2024-04-28] MEDS: SODIUM CHLORIDE IVPB ONE (11:12)
[2024-04-28] MEDS: TRASTUZUMAB QYYP IVPB ONE (11:12)
[2024-04-28 11:21] VITALS: RESP 18; TEMP 98.2
[2024-04-28] MEDS: PORTA CATH FLUSH 10 ML IVPUSH PRN (11:50)
[2024-04-28 12:54] VITALS: BP 107/61; PULSE 102
== END 2024-04-28 12:10 | disposition home or self-care (01) ==
LOC: JONCCHEMO 08:40 → J7W 08:42 → JONCCHEMO 12:10
PROVIDERS: ATTEND Internal Medicine Hematology & Oncology
PROC: 3E04305 Introduction of Other Antineoplastic into Central Vein, Percutaneous Approach (ICD-10-PCS; principal; 2024-04-28)
PROC: 3E043GC Introduction of Other Therapeutic Substance into Central Vein, Percutaneous Approach (ICD-10-PCS; 2024-04-28)
DX: Z51.11 Encounter for antineoplastic chemotherapy (principal); C50.912 Malignant neoplasm of unspecified site of left female breast; Z17.0 Estrogen receptor positive status [ER+]
CPT/HCPCS: 36415; 80053; 82378; 83735; 84703; 85025; 86300; 96375; 96413; J2405; Q5116

== ENCOUNTER 2024-05-20 08:01 | Day surgery (SDC) | payer OTHER ==
[2024-05-20] MEDS: SODIUM CHLORIDE 500 ML IV ONE (08:28)
[2024-05-20] MEDS: DEXAMETHASONE SODIUM PHOSPHATE 4 MG, ONDANSETRON INJECTION 8 MG in SODIUM CHLORIDE 100 ML IVPB ONE (10:04)
[2024-05-20] MEDS: FAMOTIDINE 20 MG/50 ML IVPB 20 MG/50 ML MG IVPB ONE (10:44)
[2024-05-20 10:51] VITALS: RESP 18; TEMP 98.1
[2024-05-20] MEDS: LIDOCAINE 5% TOPICAL PATCH TP ONE (11:12)
[2024-05-20] MEDS: PORTA CATH FLUSH 10 ML IVPUSH PRN (11:20)
[2024-05-20 11:35] VITALS: BP 121/80; PULSE 79
[2024-05-20] MEDS ORDERED: LIDOCAINE PATCH REMOVAL MC SCH (22:00)
== END 2024-05-20 11:25 | disposition home or self-care (01) ==
LOC: JONCCHEMO 08:01
PROVIDERS: ATTEND Internal Medicine Hematology & Oncology
PROC: 3E043GC Introduction of Other Therapeutic Substance into Central Vein, Percutaneous Approach (ICD-10-PCS; principal; 2024-05-20)
DX: C50.912 Malignant neoplasm of unspecified site of left female breast (principal); Z17.0 Estrogen receptor positive status [ER+]; Z76.89 Persons encountering health services in other specified circumstances
CPT/HCPCS: 96365; J2405

== ENCOUNTER 2024-09-09 08:15 | Day surgery (SDC) | payer OTHER ==
[2024-09-09 09:20] LABS: ABSOLUTE IMMATURE GRANULOCYTES 0.02 x10^3/uL (0.0-0.031); BASOPHILS # 0.02 x10^3/uL (0.01-0.08); EOSINOPHIL % 3.2 % (0.7-5.8); EOSINOPHILS # 0.22 x10^3/uL (0.04-0.36); MCHC 33.4 g/dl (32.2-35.5); MEAN CELL VOLUME 89.9 fl (79.4-94.8); MEAN PLT VOLUME 11.2 fl (9.4-12.3); MONOCYTE # 0.43 x10^3/uL (0.24-0.86); MONOCYTE % 6.3 % (4.7-12.5); RDW 12.9 % (12.3-16.6)
[2024-09-09 09:48] LABS: CO2 28.0 mmol/L (21-32); GLUCOSE,RANDOM 125.0 mg/dL (74-106)
[2024-09-09 09:51] LABS: CREATININE 0.9 mg/dL (0.55-1.3); SGOT/AST 18.0 U/L (15-37)
[2024-09-09] MEDS: SODIUM CHLORIDE 500 ML IV ONE (09:51)
[2024-09-09 09:52] LABS: SGPT/ALT 27.0 U/L (13-61)
[2024-09-09 09:53] LABS: TOT PROT 7.5 g/dl (6.4-8.2)
[2024-09-09 09:54] LABS: ALK PHOS 115.0 U/L (45-117)
[2024-09-09] MEDS: DEXAMETHASONE SODIUM PHOSPHATE 6 MG, ONDANSETRON INJECTION 8 MG in SODIUM CHLORIDE 100 ML IVPB ONE (10:11)
[2024-09-09] MEDS: ACETAMINOPHEN 325 MG TABLET (FP) PO ONE (10:11)
[2024-09-09 10:17] LABS: EPI CELLS 15 /uL (0-25.1); HYALINE CASTS 0 /uL (0-3.1); URINE APPEARANCE CLEAR; URINE BACTERIA 171 /uL (0-1359); URINE BILIRUBIN NEGATIVE (NEGATIVE); URINE COLOR YELLOW; URINE GLUCOSE (UA) NEGATIVE (NEGATIVE); URINE KETONE NEGATIVE (NEGATIVE); URINE LEUK ESTERASE TRACE (NEGATIVE); URINE NITRITE NEGATIVE (NEGATIVE); URINE PROTEIN NEGATIVE (NEGATIVE); URINE RBC 8 /uL (0-23.9); URINE UROBILINOGEN 0.2 mg/dL (0.2-1.0); URINE WBC 5 /uL (0-25.8)
[2024-09-09] MEDS: FAMOTIDINE 20 MG/50 ML IVPB 20 MG/50 ML MG IVPB ONE (10:43)
[2024-09-09] MEDS: ADO TRASTUZUMAB EMTANSINE IVPB ONE (11:18)
[2024-09-09] MEDS: SODIUM CHLORIDE IVPB ONE (11:18)
[2024-09-09] MEDS: MAG HYDROX/AL HYDROX/SIMETH 30 ML UNIT-DOSE CUP PO ONE (14:43)
[2024-09-09 14:44] VITALS: RESP 20; TEMP 98.2
[2024-09-09 14:49] VITALS: BP 121/78; PULSE 93
[2024-09-09] MEDS ORDERED: PORTA CATH FLUSH 10 ML IVPUSH PRN (14:49)
[2024-09-10 08:08] LABS: LUTEINIZING HORMONE 49.1 mIU/mL (.)
== END 2024-09-09 13:00 | disposition home or self-care (01) ==
LOC: JONCCHEMO 08:15 → J7W 08:39 → JONCCHEMO 13:00
PROVIDERS: ATTEND Internal Medicine Hematology & Oncology
DX: Z51.11 Encounter for antineoplastic chemotherapy (principal); C50.412 Malignant neoplasm of upper-outer quadrant of left female breast; Z17.0 Estrogen receptor positive status [ER+]
CPT/HCPCS: 36415; 80053; 81003; 82306; 82378; 82670; 83001; 83002; 83735; 85025; 86300; 87086; 96367; 96413; J2405; J9354

== ENCOUNTER 2024-09-30 08:12 | Day surgery (SDC) | payer OTHER ==
[~2024-09-30 08:12] MED LIST changes: +ACETAMINOPHEN 325 MG TABLET (FP) PO ONE; +DEXAMETHASONE SODIUM PHOSPHATE 6 MG, ONDANSETRON INJECTION 8 MG in SODIUM CHLORIDE 100 ML IVPB ONE; +FAMOTIDINE 20 MG/50 ML IVPB 20 MG/50 ML MG IVPB ONE; -LORazepam 2 MG/ML SDV VIAL IVPUSH ONE; +SODIUM CHLORIDE 500 ML IV ONE
[2024-09-30] MEDS ORDERED: SODIUM CHLORIDE IVPB ONE (08:30)
[2024-09-30] MEDS ORDERED: ADO TRASTUZUMAB EMTANSINE IVPB ONE (08:30)
[2024-09-30 10:05] LABS: ABSOLUTE IMMATURE GRANULOCYTES 0.02 x10^3/uL (0.0-0.031); BASOPHILS # 0.02 x10^3/uL (0.01-0.08); EOSINOPHIL % 0.8 % (0.7-5.8); EOSINOPHILS # 0.08 x10^3/uL (0.04-0.36); MCHC 32.8 g/dl (32.2-35.5); MEAN CELL VOLUME 89.5 fl (79.4-94.8); MEAN PLT VOLUME 11.0 fl (9.4-12.3); MONOCYTE # 0.55 x10^3/uL (0.24-0.86); MONOCYTE % 5.6 % (4.7-12.5); RDW 13.1 % (12.3-16.6)
[2024-09-30 10:33] LABS: GLUCOSE,RANDOM 125 mg/dL (74-106); TOT PROT 8.0 g/dl (6.4-8.2)
[2024-09-30 10:34] LABS: CO2 25 mmol/L (21-32)
[2024-09-30 10:36] LABS: ALK PHOS 112 U/L (40-150)
[2024-09-30 10:38] LABS: SGOT/AST 36 U/L (5-34); SGPT/ALT 33 U/L (0-55)
[2024-09-30 10:39] LABS: CREATININE 0.71 mg/dL (0.55-1.3)
[2024-10-01 18:09] LABS: FREE KAPPA,SERUM 29.6 mg/L (3.3-19.4); IG A QN SERUM. 239 mg/dL (87-352)
== END 2024-09-30 13:00 | disposition home or self-care (01) ==
LOC: JONCCHEMO 08:12 → J7W 08:55 → JONCCHEMO 13:00
PROVIDERS: ATTEND Internal Medicine Hematology & Oncology
PROC: 3E033GC Introduction of Other Therapeutic Substance into Peripheral Vein, Percutaneous Approach (ICD-10-PCS; principal; 2024-09-30)
DX: Z51.11 Encounter for antineoplastic chemotherapy (principal); C50.412 Malignant neoplasm of upper-outer quadrant of left female breast; Z53.8 Procedure and treatment not carried out for other reasons
CPT/HCPCS: 36415; 80053; 82306; 82378; 82784; 83735; 83883; 84155; 84165; 85025; 86300; 86335; 96413

== ENCOUNTER 2024-10-21 08:39 | Day surgery (SDC) | payer OTHER ==
[2024-10-21 09:04] LABS: ABSOLUTE IMMATURE GRANULOCYTES 0.02 x10^3/uL (0.0-0.031); BASOPHILS # 0.02 x10^3/uL (0.01-0.08); EOSINOPHIL % 1.7 % (0.7-5.8); EOSINOPHILS # 0.13 x10^3/uL (0.04-0.36); MCHC 33.3 g/dl (32.2-35.5); MEAN CELL VOLUME 89.4 fl (79.4-94.8); MEAN PLT VOLUME 11.3 fl (9.4-12.3); MONOCYTE # 0.59 x10^3/uL (0.24-0.86); MONOCYTE % 7.6 % (4.7-12.5); RDW 12.9 % (12.3-16.6)
[2024-10-21 09:19] LABS: GLUCOSE,RANDOM 84 mg/dL (74-106); TOT PROT 8.1 g/dl (6.4-8.2)
[2024-10-21 09:20] LABS: CO2 25 mmol/L (21-32)
[2024-10-21 09:22] LABS: ALK PHOS 104 U/L (40-150)
[2024-10-21 09:24] LABS: SGPT/ALT 23 U/L (0-55)
[2024-10-21 09:25] LABS: CREATININE 0.67 mg/dL (0.55-1.3); SGOT/AST 26 U/L (5-34)
[2024-10-21] MEDS: SODIUM CHLORIDE 500 ML IV ONE (10:10)
[2024-10-21] MEDS: FAMOTIDINE 20 MG/50 ML IVPB 20 MG/50 ML MG IVPB ONE (10:21)
[2024-10-21] MEDS: ACETAMINOPHEN 325 MG TABLET (FP) PO ONE (10:36)
[2024-10-21] MEDS: DEXAMETHASONE SODIUM PHOSPHATE 6 MG, ONDANSETRON INJECTION 8 MG in SODIUM CHLORIDE 100 ML IVPB ONE (10:36)
[2024-10-21] MEDS: ADO TRASTUZUMAB EMTANSINE IVPB ONE (11:17)
[2024-10-21] MEDS: SODIUM CHLORIDE IVPB ONE (11:17)
[2024-10-21 11:49] LABS: EPI CELLS >36 /uL (0-25.1); HYALINE CASTS 2 /uL (0-3.1); URINE APPEARANCE CLEAR; URINE BACTERIA 1278 /uL (0-1359); URINE BILIRUBIN NEGATIVE (NEGATIVE); URINE COLOR YELLOW; URINE GLUCOSE (UA) NEGATIVE (NEGATIVE); URINE KETONE NEGATIVE (NEGATIVE); URINE LEUK ESTERASE 1+ (NEGATIVE); URINE NITRITE NEGATIVE (NEGATIVE); URINE PROTEIN NEGATIVE (NEGATIVE); URINE RBC 7 /uL (0-23.9); URINE UROBILINOGEN 0.2 mg/dL (0.2-1.0); URINE WBC 42 /uL (0-25.8)
[2024-10-21] MEDS: PORTA CATH FLUSH 10 ML IVPUSH PRN (12:00)
[2024-10-21 12:51] VITALS: RESP 20
[2024-10-21 12:55] VITALS: BP 108/72; PULSE 86; TEMP 98.3
[2024-10-22 19:07] LABS: FREE KAPPA,SERUM 27.3 mg/L (3.3-19.4)
[2024-10-23 15:08] LABS: FREE KAP CHN UR 9.36 mg/L (1.17-86.46); KAPPA LAMBDA RATIO URIN 5.32 (1.83-14.26)
[2024-10-23 20:07] LABS: IG A QN SERUM. 231 mg/dL (87-352)
== END 2024-10-21 12:05 | disposition home or self-care (01) ==
LOC: JONCCHEMO 08:39
PROVIDERS: ATTEND Internal Medicine Hematology & Oncology
DX: Z51.11 Encounter for antineoplastic chemotherapy (principal); C50.412 Malignant neoplasm of upper-outer quadrant of left female breast; Z17.0 Estrogen receptor positive status [ER+]
CPT/HCPCS: 36415; 72070-TC-FY; 73010-TC-FY; 80053; 81003; 82306; 82378; 82784; 83735; 83883; 84155; 84165; 85025; 86300; 86335; 87086; 96367; 96413; J2405; J9354

== ENCOUNTER 2024-11-11 08:19 | Day surgery (SDC) | payer OTHER ==
[2024-11-11 08:56] LABS: ABSOLUTE IMMATURE GRANULOCYTES 0.02 x10^3/uL (0.0-0.031); BASOPHILS # 0.03 x10^3/uL (0.01-0.08); EOSINOPHIL % 1.6 % (0.7-5.8); EOSINOPHILS # 0.12 x10^3/uL (0.04-0.36); MCHC 32.7 g/dl (32.2-35.5); MEAN CELL VOLUME 88.5 fl (79.4-94.8); MEAN PLT VOLUME 11.0 fl (9.4-12.3); MONOCYTE # 0.55 x10^3/uL (0.24-0.86); MONOCYTE % 7.3 % (4.7-12.5); RDW 13.1 % (12.3-16.6)
[2024-11-11 09:38] LABS: GLUCOSE,RANDOM 90.0 mg/dL (74-106)
[2024-11-11 09:40] LABS: CO2 26.0 mmol/L (21-32)
[2024-11-11 09:42] LABS: ALK PHOS 120.0 U/L (40-150)
[2024-11-11] MEDS: SODIUM CHLORIDE 500 ML IV ONE (09:42)
[2024-11-11 09:44] LABS: SGOT/AST 33.0 U/L (5-34); SGPT/ALT 31.0 U/L (0-55)
[2024-11-11 09:45] LABS: CREATININE 0.72 mg/dL (0.55-1.3)
[2024-11-11] MEDS: FAMOTIDINE 20 MG/50 ML IVPB 20 MG/50 ML MG IVPB ONE (10:02)
[2024-11-11] MEDS: ACETAMINOPHEN 325 MG TABLET (FP) PO ONE (10:04)
[2024-11-11] MEDS: DEXAMETHASONE SODIUM PHOSPHATE 6 MG, ONDANSETRON INJECTION 8 MG in SODIUM CHLORIDE 100 ML IVPB ONE (10:30)
[2024-11-11 10:48] LABS: TOT PROT 7.9 g/dl (6.4-8.2)
[2024-11-11] MEDS: ADO TRASTUZUMAB EMTANSINE IVPB ONE (11:31)
[2024-11-11] MEDS: SODIUM CHLORIDE IVPB ONE (11:31)
[2024-11-11 13:34] VITALS: BP 115/69; PULSE 82; RESP 20; TEMP 97.9
[2024-11-11] MEDS ORDERED: PORTA CATH FLUSH 10 ML IVPUSH PRN (13:34)
== END 2024-11-11 12:21 | disposition home or self-care (01) ==
LOC: JONCCHEMO 08:19 → J7W 08:25 → JONCCHEMO 12:21
PROVIDERS: ATTEND Internal Medicine Hematology & Oncology
DX: Z51.11 Encounter for antineoplastic chemotherapy (principal); C50.412 Malignant neoplasm of upper-outer quadrant of left female breast
CPT/HCPCS: 36415; 80053; 82306; 82378; 83735; 85025; 86300; 96367; 96413; J2405; J9354